=== PATIENT | female | born 1970 | race Caucasian/White ===

== ENCOUNTER 2018-06-28 11:41 | Emergency (ER) | payer MEDICAID | END 2018-06-28 13:05 | disposition home or self-care (01) | LOC: FTE 11:41 | DX: L29.9 Pruritus, unspecified (principal); E11.9 Type 2 diabetes mellitus without complications | CPT/HCPCS: 99283; Z7502 ==

== ENCOUNTER 2018-07-05 16:25 | Emergency (ER) | payer MEDICAID | END 2018-07-05 17:15 | disposition home or self-care (01) | LOC: FTE 16:25 | DX: L29.9 Pruritus, unspecified (principal); E11.9 Type 2 diabetes mellitus without complications | CPT/HCPCS: 99283; Z7502 ==